=== PATIENT | male | born 1950 | race Caucasian/White ===

== ENCOUNTER 2019-08-23 08:40 | Observation (INO) | payer OTHER ==
[~2019-08-23] VITALS: Ht 175.3 cm; Wt 95.3 kg
[2019-08-23] VITALS (15 sets, daily range): BP systolic 125–149; BP diastolic 60–97
--- NOTE | ~2019-08-23 | EKG ---
[place] [address] ELECTROCARDIOGRAM REPORT Name: KAILAFAREED Room: [address] M.R.#: [id number] Admission: 08/23/19 Attend Phys: Familia Moya MD, Discharge: Date of : 46 Report #: [id number] THIS REPORT FOR: //name// [facility] Test Date: 2019-08-23 Test Time: 13:21:34 Pat Name: FAREED BRIGHT Department: Room: [facility] Gender: M Vp Hr Diversity: : 1950 Requested By: Familia Moya Order Number: [id number] Reading MD: Measurements Intervals [place] Rate: 48 P: 21 GA: 201 QRS: -3 QRSD: 118 T: 3 QT: 461 QTc: 412 Interpretive Statements Sinus bradycardia Nonspecific intraventricular conduction delay Inferior infarct, old No previous ECG available for comparison [email or web address] By: 1321 1321 Epiphany MD Brendan /MARIAN
[~2019-08-23 08:40] MED LIST: ADULT LOW DOSE81 MG PO; EFFIENT10 MG PO; FISH OIL 1,001000 M2 PO; LIPITOR40 MG PO; MULTI VITAMIN1 EACH PO; NITROGLYCERIN0.3 MG SL; TOPROL XL100 MG PO; VITAMIN D1000 UNI1 PO; ZOCOR 20 MG TAB20 M1
[2019-08-23 10:09] LABS: HEMATOCRIT 41.9 % (42.0-52.0); HEMOGLOBIN 14.1 gm/dL (14.0-18.0); MCH 30.9 pg (26.0-34.0); MCHC 33.7 g/dL (28.0-37.0); MCV 91.6 fL (80.0-100.0); MPV 8.5 fl. (7.2-11.1); RBC 4.58 mil/uL (4.50-6.00); RDW-CV 14.2 % (10.5-14.5); WBC 7.4 thou/uL (4.0-11.0)
[2019-08-23] MEDS ORDERED: ALLOPURINOL 10100 M1 PO (10:14)
[2019-08-23 10:15] LABS: ANION GAP 10 mmol/L (7-16); BUN 12 mg/dL (7-18); CALCIUM 8.6 mg/dL (8.5-10.1); CHLORIDE 105 mmol/L (98-107); CO2 29 mmol/L (21-32); GLUCOSE 83 mg/dL (70-99); POTASSIUM 3.7 mmol/L (3.5-5.1); SODIUM 144 mmol/L (136-145)
[2019-08-23 10:17] LABS: APTT 21.3 Seconds (25.0-31.3); PROTIME 10.2 Seconds (9.20-11.50)
[2019-08-23 10:21] LABS: ALBUMIN 3.6 g/dL (3.4-5.0); ALKALINE PHOSPHATASE 112 U/L (46-116); CHOLESTEROL 109 mg/dL (<200); HDL CHOLESTEROL 33 mg/dL (>40); LDL CHOLESTEROL 60 mg/dL (<100); SGOT 17 U/L (15-37); SGPT 37 U/L (30-65); TC:HDL 3.3 Ratio (Not establshd); TOTAL BILIRUBIN 0.4 mg/dL (<0.1-1.0); TOTAL PROTEIN 7.9 g/dL (6.4-8.2); TRIGLYCERIDE 83 mg/dL (<150); VLDL 17 mg/dL (<40)
[2019-08-23 10:22] LABS: SERUM ASSESSMENT Clear
--- NOTE | 2019-08-23 14:02 | CARD ---
[address] [address] CARDIAC CATH REPORT Name: FAREED BRIGHT Room: [address] Aaron Wilson#: [id number] Admission: 08/23/19 Attend Phys: Familia Moya MD, Discharge: Date of : 46 Report #: [id number] THIS REPORT FOR: //name// APPROVED REPORT Study performed: 08/23/2019 10:13:24 Patient Details Patient Status: In-Patient Room #: The patient is a 69 year-old male Event Personnel Familia Moya Customer Quality Engineer, Cassidy Peña RN Lead Process Engineer, Evangelist Virgen ROUTE DRIVER COIN MACHINES Scrub, Milka Lemon RTR Scrub, Allyn Hansen RTR Monitor Procedures Performed Art Access - R femoral artery, Left Heart Cath Coronaries, Bypass Grafts , GEORGE Revasc Graft Single CIRC Indication Positive stress test Risk Factors Hypercholesterolemia, Tobacco History () Previous Procedures/Diagnoses Previous CABGPrevious PCI Admission/Lab Medications/Medications given during procedure Oxygen Nasal cannula 2 l per min, Fentanyl IV 25 mcg, Midazolam (Versed) IV 2 mg, Lidocaine Subcut 15 ml, Aggrastat IV 13 mcg per min, Aggrastat IV 30.3 mcg per kg per min, Effient PO 60 mg, Aspirin PO 162 mg Procedure Narrative The patient was brought electively to the Cardiac Catheterization Laboratory and was prepped and draped in a sterile manner. The right femoral was infiltrated with 2% Lidocaine subcutaneous anesthesia. A [place] 6 FR sheath was inserted into the right femoral artery. Coronary angiography was performed using coronary diagnostic catheters. The left coronary system was accessed and visualized with a 6F JL4 catheter. The left ventricle was accessed and visualized with a 6F Pigtail catheter. Left ventricular/Aortic Valve gradient assessed via catheter pullback. Pre-dem[place] [address] CARDIAC CATH REPORT Name: KAILAFAREED COLTEN Room: [address] M.R.#: [id number] Admission: 08/23/19 Attend Phys: Familia Moya MD, Discharge: Date of : 48 Report #: [id number] performed . Closure device was deployed with a 6 Fr Angioseal. The patient tolerated the procedure well and there were no complications associated with the procedure. There was no hematoma. The SVG's were visualized with a 6F JR4 catheter. The SHAH was visualized with a 6F IM catheter. Intraoperative Conscious Sedation Sedation start time: 10:59 Case end Time: 12:05 Fentanyl 25 mcg Versed 2 mg Fluoro Time: 18.6 minutes Dose: DAP 795888 cGycm2 2715 mGy Contrast Type and Amount: Visipaque 350 ml [place] Artery Percent Stenosis #1 widely patent SHAH graft to the LAD with collaterals from the LAD the distal right coronary artery #2 status post vein graft to the circumflex with 80% calcified proximal stenosis and tandem 30% mid vessel narrowings #3 total occlusion of the previously constructed vein graft to the right coronary artery as prior cineangiograms Diagnostic Cath Left Main 30% distal narrowing LAD Tandem 90% proximal stenosis with 100% mid vessel occlusion Circumflex 100% proximal occlusion Right Coronary 100% proximal occlusion by prior cineangiograms Left Ventriculography The left ventricle is normal in size with contractility. The left ventricular ejection fraction is estimated to be 50%. Left ventricular wall motion abnormalities are present. There is no mitral insufficiency. Inferobasilar hypokinesis is noted Hemodynamics The aortic pressure is 130/63 mmHg with a mean of 83 mmHg. The left ventricular pressure is 135/0 mmHg with a mean of mmHg. The left ventricular end diastolic pressure is 15 mmHg. There was no gradient across the aortic valve upon pullback. PCI Technique Lesion Anticoagulation was achieved with Aggrastat. [place] [address] CARDIAC CATH REPORT Name: FAREED BRIGHT Room: [address] M.R.#: [id number] Admission: 08/23/19 Attend Phys: Familia Moya MD, Discharge: Date of : 46 Report #: [id number] with Aggrastat 13 ml bolus. Percutaneous coronary intervention was performed on the proximal SVG to CIRC artery. The lesion stenosis prior to intervention was 80% with ROLAND 3 flow. A Launcher JR 4 6FR Guide Catheter was used to engage the SVG ostium. A BMW 190cm Interventional Guidewire was used to cross the lesion. STENT DEPLOYMENT A drug-eluting stent 3.5 x 9 Biotronik Orsiro was inserted and inflated up to 9atm for 9seconds. Additional Inflation: 14atm for 11seconds. Additional Inflation: 16atm for 7seconds. POST STENT DEPLOYMENT BALLOON DILATION A Balloon catheter NC Trek RX 4X8 was inserted and inflated up to 15.00atm for 14seconds. Additional Inflation: 17.00atm for 15seconds. Final angiography reveals 0 % stenosis with ROLAND 3 flow. Conclusion #1 significant multivessel coronary characterized by the following: A 30% distal left main coronary artery narrowing B tandem 90% proximal LAD stenoses with 100% mid vessel occlusion C 100% occlusion of proximal nondominant circumflex D 100% occlusion of the proximal portion of the dominant right coronary artery as per prior cineangiogram #2 graft study characterized by the following: A widely patent SHAH graft to the LAD with collateralization from the distal LAD to the distal right coronary artery B patent vein graft to the circumflex with 80% calcified proximal narrowing and tandem 30% mid graft narrowings C total occlusion of the previously constructed vein graft to the right coronary artery #3 mild reduction in global left ventricular systolic function, estimate ejection fraction being 50% [place] [address] CARDIAC CATH REPORT Name: FAREED BRIGHT Room: [address] Aaron Wilson#: [id number] Admission: 08/23/19 Attend Phys: Familia Moya MD, Discharge: Date of : 48 Report #: [id number] #4 minimal elevation of left ventricular end diastolic pressure at rest #5 successful percutaneous coronary intervention with deployment of drug-eluting stent at site of 80% proximal stenosis in the saphenous vein graft to the circumflex with with 0% residual narrowing and ROLAND-3 flow to the distal vessel Recommendations Cardiac Risk Reduction Program Aggressive Medical Therapy Medications Administered Aspirin (any) Prasugrel Diagnostic Cath Approved by: Familia Moya MD Date/Time: 08/23/2019 13:58:54 <ELECTRONICALLY SIGNED> By: Familia Moya MD, [facility] 08/23/19 1402 01 140Familia Moya MD, FACC /INF
--- NOTE | 2019-08-23 14:52 | NUR ---
PT ORIENTED TO ROOM AND UNIT, BED LOW AND LOCKED, SIDE RAILS UPX3 CALL LIGHT IN REACH. TELE APLLIED AND REVEAL SB WITH 1ST DEGREE AV BLOCK. RIGHT GROIN CDI WITH NO HEMATOM. RIGHT LEG WARM AND PEDAL PULSE IS PALPABLE. WILL CONTINUE TO ASSESS.
--- NOTE | 2019-08-23 16:28 | EKG ---
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: : 1950 Requested By: Familia Moya Order Number: [id number] Shaan MD: Familia Moya Measurements Intervals [place] Rate: 48 P: 21 LA: 201 QRS: -3 QRSD: 118 T: 3 QT: 461 QTc: 412 Interpretive Statements Sinus bradycardia Nonspecific intraventricular conduction delay Inferior infarct, old No previous ECG available for comparison Electronically Signed On 08-23-2019 16:28:40 CDT by Familia Moya [email or web address] <ELECTRONICALLY SIGNED> By: Familia Moya MD, [facility] 08/23/19 1628 1321 1321 Familia Moya MD, FACC /EPI
--- NOTE | 2019-08-23 17:45 | NUR ---
RIGHT GROIN ASSESSED AT BEDSIDE BY DR. PEREZ. RIGHT FROIN REMAINS CDI WITH NO HEMATOMA. PT DENIES PAIN OR DISCOMFORT. WILL CONTINUE TO ASSESS.
--- NOTE | 2019-08-24 01:59 | NUR ---
PT ALERT ORIENTED. UP AD ROEL IN ROOM. RIGHT GROIN DRSG D/I. GROIN SITE SOFT. DENIES PAIN. TELEMETRY SHOWS SR.
[2019-08-24 04:40] VITALS: BP 124/72
[2019-08-24 05:14] LABS: HEMATOCRIT 39.2 % (42.0-52.0); HEMOGLOBIN 13.3 gm/dL (14.0-18.0); MCH 31.2 pg (26.0-34.0); MCV 91.6 fL (80.0-100.0); RBC 4.28 mil/uL (4.50-6.00)
[2019-08-24 05:25] LABS: ALKALINE PHOSPHATASE 97 U/L (46-116); ANION GAP 8 mmol/L (7-16); BUN 13 mg/dL (7-18); CALCIUM 8.5 mg/dL (8.5-10.1); CHLORIDE 108 mmol/L (98-107); CO2 28 mmol/L (21-32); CREATININE 1.1 mg/dL (0.6-1.3); GLUCOSE 92 mg/dL (70-99); POTASSIUM 4.2 mmol/L (3.5-5.1); SGOT 13 U/L (15-37); SGPT 32 U/L (30-65); SODIUM 144 mmol/L (136-145); TOTAL BILIRUBIN 0.8 mg/dL (<0.1-1.0); TOTAL PROTEIN 6.3 g/dL (6.4-8.2); TROPONIN-I LEVEL <0.06 ng/mL (<0.06)
[2019-08-24 09:00] VITALS: BP 127/69
--- NOTE | 2019-08-24 11:10 | EKG ---
[place] [address] ELECTROCARDIOGRAM REPORT Name: KAILAFAREED COLTEN Room: [address] M.R.#: [id number] Admission: 08/23/19 Attend Phys: Familia Moya MD, Discharge: Date of : 46 Report #: [id number] THIS REPORT FOR: //name// [facility] Test Date: 2019-08-24 Test Time: 04:04:07 Pat Name: FAREED BRIGHT Department: Room: [facility] Gender: M Director Digital Sales: [id number] : 1950 Requested By: Familia Moya Order Number: [id number] Shaan MD: Omega Khanna Measurements Intervals [place] Rate: 65 P: 23 CA: 170 QRS: -3 QRSD: 105 T: 33 QT: 434 QTc: 452 Interpretive Statements Sinus rhythm Inferior infarct, old Compared to ECG 08/23/2019 13:21:34 Sinus bradycardia no longer present Intraventricular conduction delay no longer present Myocardial infarct finding still present Electronically Signed On 08-24-2019 11:09:57 CDT by Omega Khanna [email or web address] <ELECTRONICALLY SIGNED> By: Omega Khanna MD, FAC 08/24/19 1109 0404 0404 Omega Khanna MD, [facility] /EPI
[2019-08-24 12:00] VITALS: BP 156/75
[2019-08-24] MEDS ORDERED: NITROGLYCERIN0.4 MG SUBLING (12:27)
[2019-08-24] MEDS ORDERED: EFFIENT10 MG PO (12:28)
[2019-08-24 12:34] VITALS: BP 149/83
--- NOTE | 2019-08-24 13:15 | NUR ---
ASSUMED PT CARE AT 0700, PT A&O X4, VSS, RA, EVENT MARKETING MANAGER TRACING SINUS RHYTHM. CATH SITE TO RIGHT GROIN, DRESSING CLEAN, DRY, AND INTACT. PT DISCHARGED HOME WITH AT APPROX 1300, EDUCATED ON DISCHARGE INSTRUCTIONS INCLUDING FOLLOW UP APPOINTMENTS AND MEDICATIONS. IV AND EVENT MARKETING MANAGER REMOVED, HOURLY ROUNDING COMPLETED.
--- NOTE | 2019-08-25 11:50 | D ---
[address] [address] DISCHARGE SUMMARY Name: FAREED BRIGHT Room: [address] Aaron MLucia#: [id number] Admission: 08/23/19 Attend Phys: Familia Moya MD, Discharge: 08/24/19 Date of : 46 Report #: [id number] THIS REPORT FOR: //name// CC: Artur Moya DATE OF SERVICE: 08/24/2019 FINAL DISCHARGE DIAGNOSES: 1. Abnormal nuclear stress test with inducible lateral ischemia. 2. Coronary artery disease. 3. Status post coronary artery bypass grafting. 4. Status post percutaneous coronary intervention of the proximal portion of the vein graft to the circumflex on 08/23/2019. 5. Hypertension. 6. Hyperlipidemia. 7. Tobacco abuse. PROCEDURES: On 08/23/2019 -- left heart catheterization, left ventriculography, selective coronary arteriography, aortocoronary saphenous vein bypass graft study, left internal mammary artery graft study, and percutaneous coronary intervention with stenting of the proximal portion of the vein graft to the circumflex. INDICATION: The patient is a very pleasant 69-year-old male with a history of remote coronary artery bypass grafting. He has underlying hypertension, hyperlipidemia, and continued tobacco abuse. Recent nuclear stress test revealed inducible lateral ischemia. In this context, catheterization was performed on 08/23/2019. That study revealed total occlusion of the mid LAD, proximal circumflex and proximal right coronary artery. Had a widely patent SHAH graft to the LAD with collaterals from the distal LAD at the right coronary artery. The saphenous vein graft to the circumflex was patent with 80% very proximal calcified stenosis. The previously constructed vein graft to the right coronary artery was occluded. Given this data and the aforementioned nuclear stress test, I performed percutaneous coronary intervention on the proximal portion of the vein graft to the circumflex, deploying one 3.5 x 9 mm drug-eluting stent in the proximal portion of that graft, post-dilating it to 4.0 mm with 0% residual, ROLAND 3 flow of the distal vessel and no thrombus noted. The patient did well post-procedurally. There was good hemostasis at the right femoral site of catheterization. He ambulated [place] [address] DISCHARGE SUMMARY Name: FAREED BRIGHT Room: [address] Aaron Wilson#: [id number] Admission: 08/23/19 Attend Phys: Familia Moya MD, Discharge: 08/24/19 Date of : 46 Report #: [id number] LABORATORY DATA: On 08/24/2019 revealed sodium 144, potassium 4.2, BUN 13, creatinine 1.1. Hemoglobin 13.3, white blood cell count 8000 with 193,000 platelets. Total cholesterol 109, triglycerides 83, HDL 33, LDL 60. DISCHARGE MEDICATIONS: He was discharged to home in stable condition on the following medications: Allopurinol 100 mg daily, aspirin 162 mg daily, atorvastatin 40 mg at bedtime, cholecalciferol 1 tablet 1000 units daily, fish oil 1000 mg daily, metoprolol succinate 100 mg daily, multivitamin tablet 1 tablet daily, prasugrel or Effient 10 mg daily with a 60 mg loading dose given periprocedurally, and p.r.n. sublingual nitroglycerin. I will plan to see the patient in the office in 4-6 weeks. Therefore, the patient is discharged to home in stable condition on the aforementioned medications with followup as iterated above. The patient is discharged from [facility] on 08/24/2019. <ELECTRONICALLY SIGNED> By: Familia Moya MD, FACC 08/25/19 1150 1146 [id number] Moya MD, FACC /nt
--- NOTE | 2019-08-28 11:30 | H ---
[address] [address] HISTORY AND PHYSICAL Name: FAREED BRIGHT Room: [address] Aaron M.RBrandy#: [id number] Admission: 08/23/19 Attend Phys: Familia Moya MD, Discharge: 08/24/19 Date of : 46 Report #: [id number] THIS REPORT FOR: //name// CC: Artur Moya HISTORY OF PRESENT ILLNESS: The patient is a very pleasant 68-year-old male with a history of complex coronary artery disease, status post remote coronary artery bypass grafting and more recent percutaneous coronary intervention to the vein graft to the right coronary artery. Of late, he has noted some dyspnea on exertion, but no chest discomfort. He has underlying hypercholesterolemia and tobacco habituation. He is compliant with aspirin, atorvastatin, metoprolol, naproxen, fish oil, vitamin D, and allopurinol. PAST MEDICAL HISTORY: Remarkable for gout, tobacco habituation and hypercholesterolemia. SOCIAL HISTORY: The patient is and is a smoker. REVIEW OF SYSTEMS: Remarkable for the following. He notes some dyspnea on exertion. There are mild arthritic complaints. The patient has a history of gout. PHYSICAL EXAMINATION: GENERAL: Reveals a middle-aged appearing male, slightly younger than his stated age. VITAL SIGNS: Blood pressure is 130/70, the pulse rate is 50, respirations are 18 per minute. NECK: Jugular venous pressure is normal. CHEST: Clear. CARDIAC: Reveals normal first and second heart sounds without murmurs or gallops. ABDOMEN: Mildly obese. EXTREMITIES: Without edema with intact femoral, pedal and radial pulses. Recent nuclear stress test demonstrated inducible lateral ischemia. IMPRESSION: 1. Abnormal nuclear stress test with inducible lateral ischemia. 2. Coronary artery disease. 3. Status post coronary artery bypass grafting. 4. Status post percutaneous coronary intervention. 5. Hypercholesterolemia. 6. [place] [address] HISTORY AND PHYSICAL Name: FAREED BRIGHT Room: [address] Aaron Wilson#: [id number] Admission: 08/23/19 Attend Phys: Familia Moya MD, Discharge: 08/24/19 Date of : 46 Report #: [id number] 7. History of gout. RECOMMENDATIONS: Given the aforementioned clinical scenario with recently abnormal nuclear stress test and known coronary artery disease, status post grafting and stenting, I would recommend recatheterization which is to be undertaken on 08/23/2019 with a subsequent therapy contingent on the results of that study. Procedure and risks have been discussed with the patient. <ELECTRONICALLY SIGNED> By: Familia Moya MD, [facility] 08/28/19 1130 1543 1601Familia Moya MD, FACC /nt
== END 2019-08-24 13:00 | disposition home or self-care (01) ==
LOC: M.CL 08:40 → M.TBA-CV 12:30 → M.2W 12:30
PROVIDERS: ADMIT Internal Medicine
DX: I25.10 Atherosclerotic heart disease of native coronary artery without angina pectoris (principal); I10 Essential (primary) hypertension; E78.00 Pure hypercholesterolemia, unspecified; M10.9 Gout, unspecified; F17.200 Nicotine dependence, unspecified, uncomplicated; Z95.1 Presence of aortocoronary bypass graft; Z79.82 Long term (current) use of aspirin; Z79.1 Long term (current) use of non-steroidal anti-inflammatories (NSAID); Z79.899 Other long term (current) drug therapy